=== PATIENT | female | born 1985 | race Two or more races ===

== ENCOUNTER 2021-08-30 13:11 | Emergency (ER) | payer OTHER ==
[~2021-08-30] VITALS: Ht 160 cm; Wt 55.0 kg
[2021-08-30] MEDS ORDERED: DICYCLOMINE 10 MG/5 ML ORAL SYR PO ONE (13:45)
[2021-08-30] MEDS ORDERED: KETOROLAC 30MG/ML VIAL IV ONE (13:45)
[2021-08-30 13:48] VITALS: BP 114/76
[2021-08-30 13:54] LABS: HEMATOCRIT. 36.9 % (36.0-48.0); HEMOGLOBIN. 12.6 g/dL (12.0-16.0); MEAN CORPUSCULAR HEMOGLOBIN 29.4 pg (28.0-32.0); MEAN CORPUSCULAR VOLUME 86.3 fL (81.0-99.0); PLATELET 318 x1000/uL (130-400); RED BLOOD CELL COUNT 4.28 mill/uL (4.2-5.4); RED CELL DISTRIBUTION WIDTH 13.2 % (11.6-14.6)
[2021-08-30 14:04] LABS: CHLORIDE 104 mEq/L (98-107)
[2021-08-30 14:20] LABS: PLATELET ESTIMATE NORMAL
[2021-08-30 15:17] LABS: CLARITY URINE CLEAR (CLEAR); COLOR URINE ORANGE (YELLOW); KETONES URINE NEGATIVE (NEGATIVE); LEUKOCYTE ESTERASE URINE NEGATIVE (NEGATIVE); NITRITE URINE NEGATIVE (NEGATIVE); OCCULT BLOOD URINE 2+ (NEGATIVE); PROTEIN URINE NEGATIVE (NEGATIVE); SPECIFIC GRAVITY URINE 1.011 (1.005-1.030); UROBILINOGEN URINE 0.2 E.U./dL (0.2-1.0)
== END 2021-08-30 16:27 | disposition home or self-care (01) ==
LOC: ER 13:11
DX: D72.829 Elevated white blood cell count, unspecified (principal); D72.825 Bandemia
CPT/HCPCS: 36415; 71045; 80053; 81003; 81025; 83690; 85025; 96374; 99284; J1885